=== PATIENT | female | born 1945 | race Caucasian/White ===

== ENCOUNTER 2023-01-14 09:18 | Outpatient (CLI) | payer OTHER ==
[~2023-01-14 09:18] MED LIST: ATACAND16 MG PO
== END 2023-01-14 13:26 | disposition home or self-care (01) ==
LOC: WOUND MED 09:18
PROVIDERS: ATTEND Specialist
DX: L98.499 Non-pressure chronic ulcer of skin of other sites with unspecified severity (principal); I10 Essential (primary) hypertension
CPT/HCPCS: 11042; A4927; A6021; A6222; A6223; A6251; G0463

== ENCOUNTER 2023-01-21 08:12 | Outpatient (CLI) | payer OTHER | END 2023-01-21 09:00 | disposition home or self-care (01) | LOC: WOUND MED 08:12 | PROVIDERS: ATTEND Specialist | DX: S49.92XD Unspecified injury of left shoulder and upper arm, subsequent encounter (principal); L98.492 Non-pressure chronic ulcer of skin of other sites with fat layer exposed | CPT/HCPCS: 11042; 11045; A4927; A6021; A6219; A6223; A6251; G0463 ==

== ENCOUNTER 2023-01-28 08:53 | Outpatient (CLI) | payer OTHER | END 2023-01-28 10:00 | disposition home or self-care (01) | LOC: WOUND MED 08:53 | PROVIDERS: ATTEND Specialist | DX: S40.812A Abrasion of left upper arm, initial encounter (principal); L98.499 Non-pressure chronic ulcer of skin of other sites with unspecified severity | CPT/HCPCS: 97602; A4927; A6223; G0463 ==